=== PATIENT | male | born 1935 | race Caucasian/White ===

== ENCOUNTER → 2017-12-11 | Outpatient (CLI) | payer MEDICARE, BC ==
[~2017-12-11] MED LIST: ACETAMINOPHEN325 M1 PO; ALBUTEROL0.63 MG/3 INH; AMLODIPINE BESYL5 MG PO; ARICEPT5 MG PO; ASPIR-LOW81 MG PO; CYMBALTA20 MG PO; EFFIENT10 MG PO; HUMALOG100 UNIT/1 SC; HUMALOG100 UNIT/1 SQ; HYDRALAZINE HCL25 MG PO; IPRATROPIU0.2 MG/1 M NEB; LABETALOL HCL100 MG PO; LANSOPRAZOLE15 MG PO; LANTUS 3ML100 UNITS/ SC; LOSARTAN POTASS25 MG PO; METOPROLOL SUCC50 MG PO; MONTELUKAST SOD10 MG PO; MUCUS RELIEF400 MG PO; NORCO 5-325 TA1 EACH PO; PANTOPRAZOLE SO40 MG PO; PRAVASTATIN SOD80 MG PO; PROAIR HFA INH8.5 GM INH; PROCARDIA XL30 MG PO; RIVASTIGMINE1.5 MG PO; SIMVASTATIN80 MG PO; SYMBICORT 16010.2 GM INH; TAMSULOSIN HCL0.4 MG PO; TRADJENTA5 MG PO; VIT B PO
--- NOTE | 2017-12-11 17:08 | Cardiology Report ---
DATE OF STUDY: December 11, 2017 NUCLEAR GATED MYOCARDIAL PERFUSION SCAN Nuclear gated myocardial perfusion scan performed as per protocol at nuclear medicine lab at [facility]. Lexiscan injected 0.4 mg intravenously as stress agent and Myoview injected 11 mCi for resting protocol and 33 mCi for stress protocol. The stress is supervised by Dr. Hamilton and stress EKG is interpreted by Dr. Hamilton. Nuclear interpretation: [id number], only done by Dr. Dr. Fanta Kline. IMPRESSION: 1. Left ventricular ejection fraction 65%. No evidence of ischemia or scar noted. 2. Normal gated myocardial perfusion scan. Thank you, Dr. Hamilton for this nuclear interpretation, consultation. Job#: [id number]
== END ==
LOC: NM 10:47
PROVIDERS: ATTEND Internal Medicine Cardiovascular Disease
DX: I25.110 Atherosclerotic heart disease of native coronary artery with unstable angina pectoris (principal); R94.31 Abnormal electrocardiogram [ECG] [EKG]
CPT/HCPCS: 78452; 93017; A9502

== ENCOUNTER 2018-02-13 13:20 | Inpatient (IN) | payer MEDICARE, BC ==
[~2018-02-13] VITALS: Ht 175.3 cm; Wt 49.5 kg
[~2018-02-13 13:20] MED LIST changes: -AMLODIPINE BESYL5 MG PO; -CYMBALTA20 MG PO; -HYDRALAZINE HCL25 MG PO; -LABETALOL HCL100 MG PO; -PANTOPRAZOLE SO40 MG PO; -PRAVASTATIN SOD80 MG PO; -RIVASTIGMINE1.5 MG PO; -TRADJENTA5 MG PO
--- OUTSIDE RECORDS SUMMARY | 2018-02-13 13:24 | XMS REPORT ---
[facility] Address Unknown Phone Unavailable Care Team Providers Care V Belt Finisher Name Role Phone PALOMO HAMILTON Unavailable Unavailable AMBER GREEN Unavailable Unavailable CANDI PINZON Unavailable Unavailable Problems This patient has no known problems. Allergies, Adverse Reactions, Alerts This patient has no known allergies or adverse reactions. Medications This patient has no known medications. Results Test Description Test Time Test Comments Text Results Atomic Results Result Comments Stress Test - Treadmill ONLY [place] [address] Patient Name : CURLY DEL VALLE MR #: [id number] : 1935 Age/Sex: 82/M Adm Physician : PALOMO HAMILTON MD Admit Date : Location : PR Room/Bed : REPORT: Cardiology Report DATE OF STUDY: December 11, 2017 NUCLEAR GATED MYOCARDIAL PERFUSION SCAN Nuclear gated myocardial perfusion scan performed as per protocol at nuclear medicine lab at [facility]. Lexiscan injected 0.4 mg intravenously as stress agent and Myoview injected 11 mCi for resting protocol and 33 mCi for stress protocol. The stress is supervised by Dr. Hamilton and stress EKG is interpreted by Dr. Hamilton. Nuclear interpretation: [id number], only done by Dr. Dr. Fanta Kline. IMPRESSION: 1. Left ventricular ejection fraction 65%. No evidence of ischemia or scar noted. 2. Normal gated myocardial perfusion scan. Thank you, Dr. Hamilton for this nuclear interpretation, consultation. DT: 12/11 16:50 Job#: [id number] Signature Date Dictated By : IRAM KLINE MD Transcribed By: ROSARIO on 12/11/17 <Electronically signed by IRAM KLINE MD><<Signature on File>>12/30/17 1608 COPY TO: CHEST SINGLE (PORTABLE) [place] [address] Patient Name: CURLY DEL VALLE MR #: [id number] : 1935 Age/Sex: 82/M Req #: [id number] Adm Physician: Ordered by: CANDI PINZON MD Report #: [id number] Location: ER Room/Bed: Procedure: [id number] DX/CHEST SINGLE (PORTABLE) Exam Date: 07/14/17 Exam Time: 0740 REPORT STATUS: Signed PROCEDURE: CHEST SINGLE (PORTABLE) COMPARISON: 06/25/2017. INDICATIONS: VOMITING FINDINGS: The lungs are hyperinflated. Calcified right upper lobe granuloma and right hilar lymph nodes. No consolidation, pleural effusion, or pneumothorax. Tortuosity of the thoracic aorta with an otherwise normal cardiomediastinal contour. No free air under the diaphragm. Left subclavian approach implantable cardiac device body and leads are unchanged in position. No acute osseous abnormality. Degenerative changes of the left glenohumeral joint. CONCLUSION: No acute cardiopulmonary abnormality. Pulmonary hyperinflation compatible with COPD. Evidence of prior granulomatous disease. Dictated by: Heather Leong M.D. on at 8:03 Electronically approved by: Heather Leong M.D. on 2016 at 8:03 Dictated By: HEATHER LEONG MD 2 Transcribed By: ANTHONY on 07/14/17802 COPY TO: CANDI PINZON MD US RENAL RETROPERITONEAL COMP [place] [address] Patient Name: CURLY DEL VALLE MR #: [id number] : 1935 Age/Sex: 82/M Req #: [id number] Adm Physician: AMBER GREEN MD Ordered by: DIANA ARZATE, BETTIE ARZATE Report #: [id number] Location: MED/SURG Room/Bed: [facility] Procedure: [id number] US/US RENAL RETROPERITONEAL COMP Exam Date: 07/14/17 Exam Time: 1615 REPORT STATUS: Signed PROCEDURE: US RETROPERITONEAL ( KIDNEY ). COMPARISON: CT abdomen and pelvis 06/25/2017. INDICATIONS: DEHYDRATION TECHNIQUE: Garcia- scale and color sonographic images of the bilateral kidneys and bladder where obtained in transverse and longitudinal planes. FINDINGS: RIGHT KIDNEY: 6.7 x 2.1 x 2.6 cm, cortex 0.3 cm Cysts: None Solid masses : None Stones: None Hydronephrosis: None Echogenicity: Increased LEFT KIDNEY: 7.7 x 4.4 x 4.6 cm, cortex 0.9 cm Cysts: None Solid masses: None Stones: None Hydronephrosis: None Echogenicity: Increase Bladder: 208 mL Bilateral ureteral jets are not visualized. Prostate : 4.9 x 2.5 x 3.1 cm. CONCLUSION: 1. Echogenic kidneys consistent medical renal disease. 2. Atrophic right kidney. 3. Previous possible cyst in the interpolar region of the right kidney is not well-visualized. Dictated by: Ry Gary M.D. on 07/14/2017 at 17:24 Electronically approved by: Ry Gary M.D. on 07/14/2017 at 17:24 Dictated By: RY GARY MD 23 Transcribed By: ANTHONY on 07/14/171723 COPY TO: BETTIE ORTIZ CT ABDOMEN/PELVIS WO [place] [address] Patient Name: CURLY DEL VALLE MR #: [id number] : 1935 Age/Sex: 82/M Req #: [id number] Adm Physician: Ordered by: LAZARO GRAY MD Report #: [id number] Location: ER Room/Bed: Procedure: [id number] CT/CT ABDOMEN/PELVIS WO Exam Date: Exam Time: REPORT STATUS: Signed CT Abdomen and Pelvis without contrast INDICATION: Abdominal pain TECHNIQUE: Thin collimation axial images obtained from the diaphragm to the level of the pubic symphysis without nonionic intravenous contrast. RADIATION DOSE: Total DLP: 145.25 mGy*cm Estimated effective dose: (DLP x 0.015 x size factor) mSv CTDIvol has been reviewed. It is below the limits set by the Radiation Protocol Committee (RPC). COMPARISON: None. ABDOMEN FINDINGS: Lung Bases: Diffusely hyperinflated with spiculated nodule or scar in the right middle lobe measuring 1.1 x 0.8 cm. A right fat-containing Bochdalek hernia is present. There are heavy calcific age is the mitral valve. Dual lead pacemaker wire terminates in the right atrium and right ventricle.. The visualized portion of the mediastinum is normal. Liver: Normal in attenuation without mass. Gallbladder: Present and appears normal. No ductal dilatation. Pancreas: Normal attenuation without mass. Spleen: Normal in size with calcified granulomata. Adrenal Glands: No evidence for mass. Kidneys: Right: Atrophic without hydronephrosis. Low attenuating lesion in the lateral interpolar cortex measures 7 mm and is too small to characterize further. Left: No renal calculus. No cortical mass or hydronephrosis Lymph Nodes: No lymphadenopathy. Aorta: [place] aorta is heavily calcified. Aortic graft is present. There are stents in the common iliac arteries. No retroperitoneal hemorrhage or inflammation. No free fluid or fluid collection. PELVIS FINDINGS: Bowel: Small Bowel: Distended with air and enteric contrast with no mural thickening or mesenteric inflammation. Large Bowel: Diverticulosis coli, particularly in the sigmoid colon without associated inflammation. No mural thickening. There is gaseous distention of the cecum and right colon without significant dilatation. Appendix: Best seen on coronal reformations and is normal. Bladder: Under distended. There is mild diffuse bladder wall thickening. The prostate gland is enlarged.. Ureters: No ureteral dilatation. No free fluid or fluid collection. Bones: Multilevel degenerative disc disease superimposed on scoliosis. No compression deformities. No lytic or blastic lesions. IMPRESSION: 1. Gaseous distention of the small bowel and large bowel without evidence of obstruction. Diverticulosis coli. No evidence of diverticulitis. 2. Aortic graft within normal limits. 3. Atrophic right kidney with subcentimeter cortical lesion, too small to characterize. Recommend further characterization with ultrasound on an outpatient basis. 4. Spiculated nodule or scar in the base of the right lung. Recommend further evaluation with CT of the chest to establish baseline for periodic surveillance to confirm stability. Signed by: Dr. Gabriella Martin MD on 06/25/2017 8:16 AM Dictated By: GABRIELLA MARTIN MD 5 Transcribed By: JOSE on 08/01 COPY TO: LAZARO GRAY MD CHEST 2 VIEWS [place] [address] Patient Name: CURLY DEL VALLE MR #: [id number] : 1935 Age/Sex: 82/M Req # : [id number] [facility] Physician: Ordered by: LAZARO GRAY MD Report #: [id number] Location: ER Room/Bed: Procedure: [id number] DX/CHEST 2 VIEWS Exam Date: Exam Time: REPORT STATUS: Signed EXAMINATION: CHEST 2 VIEWS INDICATION: Indigestion COMPARISON: None FINDINGS: TUBES and LINES: The pacemaker is intact. LUNGS: Lungs are hyper inflated. Lungs are clear. There is no evidence of pneumonia or pulmonary edema. PLEURA: No pleural effusion or pneumothorax. HEART AND MEDIASTINUM: The cardiomediastinal silhouette is unremarkable. There are atherosclerotic calcifications within the aorta. BONES AND SOFT TISSUES: No acute osseous lesion. Soft tissues are unremarkable. UPPER ABDOMEN: No free air under the diaphragm. IMPRESSION: 1. No acute thoracic abnormality. 2. Hyperinflation of lungs in keeping with COPD. Signed by: Dr. Gavin Hager M.D. on 06/25/2017 6:04 AM Dictated By: GAVIN VEGA MD 3 Transcribed By: JOSE on 06/25/17603 COPY TO: LAZARO GRAY MD
[2018-02-13 14:29] LABS: BASOPHILS % 0.2 % (0.0-1.0); EOSINOPHILS % 0.4 % (0.0-6.0); HEMATOCRIT 31.3 % (38.2-49.6); LYMPHOCYTES # (AUTO) 0.6 (1.0-3.2); LYMPHOCYTES % 6.5 % (18.0-39.1); MEAN CORPUSCULAR HEMOGLOBIN 30.5 pg (28-32); MEAN CORPUSCULAR HGB CONC 31.9 g/dL (31-35); MEAN CORPUSCULAR VOLUME 95.4 fL (81-99); MONOCYTES # (AUTO) 0.3 (0.2-0.8); MONOCYTES % 3.4 % (4.4-11.3); NEUTROPHILS % 89.1 % (38.7-80.0); PLATELET COUNT 209 x10e3/uL (140-360); RED BLOOD COUNT 3.28 x10e6/uL (4.3-5.7); RED CELL DISTRIBUTION WIDTH 14.9 % (11.7-14.4)
[2018-02-13 14:45] LABS: ALBUMIN 3.7 g/dL (3.5-5.0); ALBUMIN/GLOBULIN RATIO 1.1 (0.8-2.0); ANION GAP 13.6 mmol/L (8-16); CALCIUM 10.3 mg/dL (8.4-10.2); CREATININE, SERUM 2.65 mg/dL (0.72-1.25); POTASSIUM 4.6 mmol/L (3.5-5.1)
[2018-02-13 15:05] LABS: THYROID STIMULATING HORMONE 0.789 uIU/mL (0.350-4.940)
--- NOTE | 2018-02-13 15:06 | Diagnostic Imaging Report ---
History:AMS, weakness Comparison studies:None Technique: Axial images were obtained from the skull base to the vertex. Coronal and sagittal images reconstructed from the axial data. Intravenous contrast: None Findings: Scalp/skull: No abnormalities. Extra-axial spaces: No masses. No fluid collections. Brain sulci: Mildly prominent. Ventricles: Mild compensatory dilatation. No hydrocephalus. Parenchyma: Scattered small hypodensities in the supratentorial white matter are small vessel ischemic changes. No masses, hemorrhage, acute or chronic cortical vascular insults. Sellar/suprasellar region: No abnormalities. Craniocervical junction: Patent foramen magnum. No Chiari one malformation. Incidental findings: Atherosclerotic calcifications in the carotid siphons . Bilateral cataract surgery changes. Impression: No acute abnormalities. Chronic findings: 1. Mild generalized volume loss. 2. Mild supratentorial white matter small vessel ischemic changes. Signed by: DR Tyrell Wilhelm M.D. on 02/13/2018 3:03 PM
[2018-02-13 15:52] LABS: BILIRUBIN,URINE NEGATIVE (NEGATIVE); CLARITY,URINE SL CLOUDY (CLEAR); COLOR,URINE YELLOW (YELLOW); KETONES,URINE NEGATIVE (NEGATIVE); LEUKOCYTE ESTERASE ,URINE NEGATIVE (NEGATIVE); NITRITE,URINE NEGATIVE (NEGATIVE); PROTEIN,URINE DIPSTICK 2+ (NEGATIVE); URINE UROBILINOGEN 0.2 mg/dL (0.2 - 1)
[2018-02-13 16:09] LABS: HYPOCHROMASIA MODERATE; LYMPHOCYTES % (MANUAL) 7 % (19-48); MONOCYTES % (MANUAL) 3 % (3.4-9.0); NEUTROPHILS % (MANUAL) 90 % (40-74); PLATELET ESTIMATE ADEQUATE; PLATELET MORPHOLOGY COMMENT FEW LARGE; RBC MORPHOLOGY COMMENT NORMAL
[2018-02-13] MEDS ORDERED: DEXTROSE 50% SYRINGE 50 ML IV PRN (16:45)
[2018-02-13] MEDS ORDERED: ONDANSETRON HCL INJ 2 MG/ML VIAL IV PRN (16:45)
[2018-02-13] MEDS ORDERED: SODIUM CHLORIDE FLUSH 10 ML SYR INJ PRN (16:45)
[2018-02-13] MEDS ORDERED: LABETALOL HCL100 MG PO (17:13)
[2018-02-13] MEDS ORDERED: CYMBALTA20 MG PO (17:13)
[2018-02-13] MEDS ORDERED: TRADJENTA5 MG PO (17:13)
[2018-02-13] MEDS ORDERED: HYDRALAZINE HCL25 MG PO (17:13)
[2018-02-13] MEDS ORDERED: AMLODIPINE BESYL5 MG PO (17:13)
[2018-02-13] MEDS ORDERED: PRAVASTATIN SOD80 MG PO (17:13)
[2018-02-13] MEDS ORDERED: PANTOPRAZOLE SO40 MG PO (17:13)
[2018-02-13] MEDS ORDERED: RIVASTIGMINE1.5 MG PO (17:13)
[2018-02-13 18:31] VITALS: BP 179/83
[2018-02-13] MEDS: SODIUM CHLORIDE 0.9% 1000ML 1,000 ML IV SCH (19:00)
[2018-02-13 20:00] VITALS: BP 177/76
[2018-02-13 20:25] VITALS: BP 160/83
[2018-02-13] MEDS: INSULIN REGULAR, HUMAN 100 UNIT/1 ML 3ML VIAL SQ SCH (21:55)
[2018-02-14] VITALS (7 sets, daily range): BP systolic 163–195; BP diastolic 72–80
[2018-02-14] MEDS: SODIUM CHLORIDE 0.9% 1000ML 1,000 ML IV SCH (04:13)
[2018-02-14 07:06] LABS: BASOPHILS % 0.3 % (0.0-1.0); EOSINOPHILS # (AUTO) 0.2 (0.0-0.4); EOSINOPHILS % 2.2 % (0.0-6.0); HEMATOCRIT 28.6 % (38.2-49.6); HEMOGLOBIN 9.4 g/dL (14.0-18.0); LYMPHOCYTES # (AUTO) 0.9 (1.0-3.2); LYMPHOCYTES % 13.5 % (18.0-39.1); MEAN CORPUSCULAR HEMOGLOBIN 31.5 pg (28-32); MEAN CORPUSCULAR HGB CONC 32.9 g/dL (31-35); MONOCYTES # (AUTO) 0.6 (0.2-0.8); MONOCYTES % 8.4 % (4.4-11.3); NEUTROPHILS # (AUTO) 5.2 (2.1-6.9); NEUTROPHILS % 75.2 % (38.7-80.0); PLATELET COUNT 189 x10e3/uL (140-360); RED BLOOD COUNT 2.98 x10e6/uL (4.3-5.7); RED CELL DISTRIBUTION WIDTH 15.1 % (11.7-14.4)
[2018-02-14] MEDS: INSULIN REGULAR, HUMAN 100 UNIT/1 ML 3ML VIAL SQ SCH ×4 (07:30→21:00)
[2018-02-14 07:31] LABS: ALBUMIN 3.1 g/dL (3.5-5.0); ALBUMIN/GLOBULIN RATIO 1.1 (0.8-2.0); ANION GAP 11.4 mmol/L (8-16); CALCIUM 9.7 mg/dL (8.4-10.2); CHOL/HDL RATIO 2.5 (3.9-4.7); CREATININE, SERUM 2.45 mg/dL (0.72-1.25); MAGNESIUM 1.9 MG/DL (1.3-2.1); PHOSPHORUS 3.7 MG/DL (2.3-4.7); POTASSIUM 4.4 mmol/L (3.5-5.1)
[2018-02-14] MEDS ORDERED: ASPIRIN 325 MG TAB EC PO SCH (09:00)
[2018-02-14] MEDS ORDERED: GUAIFENESIN PO PRN (10:00)
[2018-02-14] MEDS ORDERED: HYDROCODONE/APAP 5MG-325MG TAB PO PRN (10:00)
[2018-02-14] MEDS ORDERED: ACETAMINOPHEN 325 MG TAB PO PRN (10:00)
[2018-02-14] MEDS ORDERED: AMLODIPINE BESYLATE 5 MG TAB PO SCH (10:15)
[2018-02-14] MEDS: PRASUGREL 10 MG TAB PO SCH (10:15)
[2018-02-14] MEDS: LABETALOL HCL 100 MG TAB PO SCH ×3 (11:00→22:24)
[2018-02-14] MEDS: ALBUTEROL SULF 0.083% NEB SOLN 3 ML NEB INH PRN (11:35)
[2018-02-14] MEDS ORDERED: ONDANSETRON HCL 4 MG ORAL DISINTEGRATING TAB PO PRN (11:45)
[2018-02-14] MEDS: HYDRALAZINE HCL 25 MG TAB PO SCH ×2 (15:10→22:24)
[2018-02-14] MEDS ORDERED: PROCARDIA XL30 MG PO (16:34)
[2018-02-14] MEDS ORDERED: PANTOPRAZOLE SOD 40 MG TABEC PO SCH (17:00)
--- NOTE | 2018-02-14 17:11 | Consultation ---
DATE OF CONSULTATION: TIME OF CONSULTATION: 4 p.m. NEUROLOGICAL CONSULTATION A patient of Dr. Tex Snyder. REASON FOR CONSULTATION: TIA. HISTORY OF PRESENT ILLNESS: This is an 82-year-old male with a history of COPD, hypertension, diabetes mellitus, hyperlipidemia, chronic kidney disease. Last night he developed generalized weakness, not feeling good, feeling like some trouble with his speech and feeling like he was going to fall. He was brought to the emergency room. Apparently in the emergency room the blood pressure was high. I do not have the values. He was put in the hospital with a diagnosis of TIA. Also he was complaining of blurred vision. He also has some history of short-term memory, possible mild dementia. LIST OF MEDICATION: Has been reviewed in detail. REVIEW OF SYSTEMS: All 12 steps negative except what is described above. ALLERGIES: NONE KNOWN. SOCIAL HISTORY: He does not smoke or drink. He lives with his . PAST SURGICAL HISTORY: He had a coronary artery bypass in 1999. PHYSICAL EXAMINATION GENERAL: He denies any headache at the time. He denies any visual disturbance. No diplopia, no speech, no swallowing difficulty. He denies any paresthesia of the arms or legs. VITAL SIGNS: Blood pressure 179/119. He has been having trouble controlling the blood pressure. Pulse 78. Afebrile. LUNGS: Clear to auscultation and percussion. HEART: Regular sinus rhythm. No murmur. ABDOMEN: Soft. No tenderness. No organomegaly. MUSCULOSKELETAL: Lower extremities: No edema, no cyanosis, no clubbing. NEUROLOGIC Mental status: Awake, alert, follows commands well. Speech clear. No evidence of dysarthria or dysphagia. Cranial nerves: Pupils were both equal and reactive. External ocular movements were full. Visual field on confrontation was grossly normal. Funduscopic examination benign. No facial weakness. Facial sensation normal. Tongue protrudes midline. Motor power: Moving all 4 extremities symmetrically. Proximal and distal muscles 5/5. Lower extremities, able to elevate his legs against gravity approximately 70 degrees without any difficulty. Flexion of the hips 5/5. Flexion and extension of both knees 5/5. Dorsiflexion of the ankles 5/5, plantarflexion 5/5. Dorsal extension 5/5 bilaterally. Coordination: [id number]-zc-[id number] is normal. Deep tendon reflexes: Triceps, biceps, radials 1+. Knee jerks 1+. Ankle jerks were absent bilaterally. Plantar stimulation is down bilaterally. HEAD: Normocephalic. NECK: Supple. Carotid pulsations were present bilaterally. There was a systolic bruit in the left side. LABORATORY WORKUP: CBC shows a white count 6900 with a hemoglobin 9.4, hematocrit 28.6, platelets 189,000. Chemistry: Sodium and potassium were within the normal range. BUN 27, elevated. Creatinine 2.45, elevated. Estimated GFR 25, which is quite low. Glucose 127. Liver enzymes are normal. Urinalysis negative. A CT scan of the brain shows no acute pathology. Echocardiogram has been done. Carotid Doppler is pending. ASSESSMENT 1. An 82-year-old male with sudden generalized weakness, feeling weak, not feeling well, slurred speech, possibility of transient ischemic attack, the reason for which he came into the hospital. Most likely we are dealing with a brief TIA. 2. History of hypertension. 3. Diabetes mellitus type 2. 4. Chronic obstructive pulmonary disease. At the present time, the neurological workup has been negative for any focal deficit, no evidence of acute stroke. We will review the Doppler study of the carotid system and will consult Physical Therapy for ambulation. If the Doppler is normal, the ambulation is normal, then he could be sent home. Job#: [id number] EV
[2018-02-14] MEDS: INSULIN DETEMIR 100 UNIT/ML PEN SQ SCH (21:00)
[2018-02-14] MEDS: NIFEDIPINE CR 30 MG TAB PO SCH (22:23)
[2018-02-14] MEDS: RIVASTIGMINE TARTRATE 1.5 MG CAP PO SCH (22:23)
[2018-02-14] MEDS: PANTOPRAZOLE SOD 40 MG TABEC PO SCH (22:23)
[2018-02-14] MEDS: SIMVASTATIN 40 MG TAB PO SCH (22:24)
[2018-02-15] VITALS (7 sets, daily range): BP systolic 132–173; BP diastolic 61–77
[2018-02-15] MEDS: ALBUTEROL SULFATE HFA 8GM INHALATION AEROSOL INH PRN ×2 (00:09→06:32)
[2018-02-15] MEDS: BUDESONIDE/FORMOTEROL 160/4.5MCG INHALER INH PRN ×2 (00:09→06:30)
[2018-02-15] MEDS: INSULIN REGULAR, HUMAN 100 UNIT/1 ML 3ML VIAL SQ SCH ×4 (07:30→21:00)
[2018-02-15] MEDS: NIFEDIPINE CR 30 MG TAB PO SCH ×2 (08:47→23:04)
[2018-02-15] MEDS: MONTELUKAST SODIUM 10 MG TAB PO SCH (08:47)
[2018-02-15] MEDS: TAMSULOSIN HCL 0.4 MG CAP PO SCH (08:47)
[2018-02-15] MEDS: PRASUGREL 10 MG TAB PO SCH (08:47)
[2018-02-15] MEDS: FOLIC ACID/CYANOCOB/PYRIDOXINE TAB PO SCH (08:47)
[2018-02-15] MEDS: LINAGLIPTIN 5 MG PO SCH (08:47)
[2018-02-15] MEDS: DULOXETINE HCL 20 MG DELAYED RELEASE PO SCH (08:47)
[2018-02-15] MEDS: RIVASTIGMINE TARTRATE 1.5 MG CAP PO SCH ×2 (08:47→23:03)
[2018-02-15] MEDS: HYDRALAZINE HCL 25 MG TAB PO SCH ×3 (08:47→23:04)
[2018-02-15] MEDS: PANTOPRAZOLE SOD 40 MG TABEC PO SCH ×2 (08:47→23:03)
[2018-02-15] MEDS: LABETALOL HCL 100 MG TAB PO SCH ×3 (08:48→23:04)
[2018-02-15] MEDS ORDERED: VIT B PO SCH (09:00)
[2018-02-15] MEDS: DEXTROSE 5%/0.225% SOD CHL 1,000 ML IV SCH (10:49)
[2018-02-15] MEDS: INSULIN DETEMIR 100 UNIT/ML PEN SQ SCH (21:00)
[2018-02-15] MEDS: SIMVASTATIN 40 MG TAB PO SCH (23:03)
[2018-02-16] VITALS (16 sets, daily range): BP systolic 132–184; BP diastolic 64–81
[2018-02-16] MEDS: DEXTROSE 5%/0.225% SOD CHL 1,000 ML IV SCH (02:10)
[2018-02-16] MEDS: ALBUTEROL SULFATE HFA 8GM INHALATION AEROSOL INH PRN (03:55)
[2018-02-16] MEDS: ALBUTEROL SULF 0.083% NEB SOLN 3 ML NEB INH PRN ×2 (04:05→22:45)
[2018-02-16 06:18] LABS: BASOPHILS % 0.2 % (0.0-1.0); EOSINOPHILS # (AUTO) 0.1 (0.0-0.4); HEMATOCRIT 31.1 % (38.2-49.6); LYMPHOCYTES # (AUTO) 0.8 (1.0-3.2); LYMPHOCYTES % 7.4 % (18.0-39.1); MEAN CORPUSCULAR HEMOGLOBIN 30.5 pg (28-32); MEAN CORPUSCULAR HGB CONC 32.2 g/dL (31-35); MEAN CORPUSCULAR VOLUME 94.8 fL (81-99); MONOCYTES # (AUTO) 0.6 (0.2-0.8); MONOCYTES % 6.2 % (4.4-11.3); NEUTROPHILS # (AUTO) 8.8 (2.1-6.9); NEUTROPHILS % 84.5 % (38.7-80.0); PLATELET COUNT 203 x10e3/uL (140-360); RED BLOOD COUNT 3.28 x10e6/uL (4.3-5.7); RED CELL DISTRIBUTION WIDTH 14.8 % (11.7-14.4)
[2018-02-16 06:34] LABS: ANION GAP 12.1 mmol/L (8-16); CALCIUM 9.9 mg/dL (8.4-10.2); CREATININE, SERUM 2.31 mg/dL (0.72-1.25); POTASSIUM 4.1 mmol/L (3.5-5.1)
[2018-02-16] MEDS: BUDESONIDE/FORMOTEROL 160/4.5MCG INHALER INH PRN (07:02)
[2018-02-16] MEDS ORDERED: FENTANYL CITRATE/PF 100MCG/2 ML INJ ONE (07:13)
[2018-02-16] MEDS ORDERED: LIDOCAINE HCL 2% LOCAL 20 ML VIAL ONE (07:13)
[2018-02-16] MEDS ORDERED: MIDAZOLAM HCL 2 MG/2 ML VIAL ONE (07:13)
[2018-02-16] MEDS ORDERED: HEPARIN SOD/SOD CHLORIDE 2,000 ML ONE (07:14)
[2018-02-16] MEDS ORDERED: IOPAMIDOL 370 MG/ML 200 ML INFUS..BTL INJ ONE (07:16)
[2018-02-16] MEDS ORDERED: SODIUM CHLORIDE 0.9% 1000ML 1,000 ML ONE (07:16)
[2018-02-16] MEDS: INSULIN REGULAR, HUMAN 100 UNIT/1 ML 3ML VIAL SQ SCH ×4 (07:30→21:00)
[2018-02-16] MEDS: FOLIC ACID/CYANOCOB/PYRIDOXINE TAB PO SCH (10:56)
[2018-02-16] MEDS: HYDRALAZINE HCL 25 MG TAB PO SCH ×3 (10:56→21:30)
[2018-02-16] MEDS: RIVASTIGMINE TARTRATE 1.5 MG CAP PO SCH ×2 (10:56→21:00)
[2018-02-16] MEDS: LINAGLIPTIN 5 MG PO SCH (10:56)
[2018-02-16] MEDS: TAMSULOSIN HCL 0.4 MG CAP PO SCH (10:56)
[2018-02-16] MEDS: DULOXETINE HCL 20 MG DELAYED RELEASE PO SCH (10:56)
[2018-02-16] MEDS: PRASUGREL 10 MG TAB PO SCH (10:56)
[2018-02-16] MEDS: MONTELUKAST SODIUM 10 MG TAB PO SCH (10:57)
[2018-02-16] MEDS: NIFEDIPINE CR 30 MG TAB PO SCH ×2 (10:57→21:49)
[2018-02-16] MEDS: LABETALOL HCL 100 MG TAB PO SCH ×3 (10:57→21:50)
[2018-02-16] MEDS: PANTOPRAZOLE SOD 40 MG TABEC PO SCH ×2 (10:57→21:00)
[2018-02-16] MEDS: SODIUM CHLORIDE 0.9% 1000ML 1,000 ML IV SCH ×2 (11:42→21:51)
--- NOTE | 2018-02-16 13:03 | Consultation ---
DATE OF CONSULTATION: February 16, 2018 REASON FOR CONSULTATION: Abnormal kidney function. Patient is an existing patient with chronic kidney disease. He is currently lying supine, awake, alert, in no apparent distress, status post angiogram. by bedside. Most recent labs show hemoglobin is 10 with potassium 4.1, bicarbonate 23, creatinine 2.3. Recent urinalysis shows specific gravity 1.020 with dipstick negative blood. Urine microscopy is benign but dipstick-positive protein and glucose. Recent workup included CT of the brain without contrast. It shows mild supratentorial white matter small vessel ischemic changes. ALLERGIES: PLAVIX. CURRENT MEDICATIONS: Include: 1. D5 in 0.25% NS at 60 mL an hour. 2. He is on Tylenol p.r.n. 3. Albuterol. 4. Cymbalta 20 mg p.o. daily. 5. Guaifenesin p.r.n. 6. Insulin. 7. Labetalol 100 mg p.o. t.i.d. 8. Nifedipine 30 mg p.o. q.12. 9. Simvastatin 40 mg at bedtime. 10. Effient 10 mg p.o. daily. 11. Pantoprazole. 12. Flomax 0.4 mg daily. SOCIAL HISTORY: Does not smoke or drink. . PAST MEDICAL HISTORY: Type-2 diabetes, hypertension, congestive heart failure, chronic kidney disease, benign prostatic hypertrophy, hyperlipidemia. PHYSICAL EXAMINATION GENERAL: Awake, alert, lying supine, no apparent distress. VITALS: Blood pressure of 130/60. Pulse rate 80. HEAD AND NECK: Corneas clear. Oral mucosa moist. LUNGS: Relatively clear. No rales. HEART: S1 and S2 audible. Soft 1/6 to 2/6 ejection systolic murmur heard over left sternal border. LOWER EXTREMITIES: No edema. IMPRESSION AND PLAN: Chronic kidney disease with acute kidney injury component. Prior history of chronic obstructive pulmonary disease and multiple comorbids. Status post angiogram. Relatively nonoliguric. Hemoglobin is stable. Dipstick-positive protein. Plan on discontinuing existing IV fluids. Will recommend to avoid NSAIDs, ROSEMARY and ARBs at this point in time. Will start normal saline at 100 mL an hour at this point in time. Will obtain spot urine [id number] ratio. Monitor patient's kidney function and urine output with you. Recommend strict intake and output. Discussed with RN. Please see orders. Job#: [id number] ROCIO
[2018-02-16] MEDS ORDERED: ACETAMINOPHEN 325 MG TAB PO PRN (14:00)
--- NOTE | 2018-02-16 16:27 | Consultation ---
DATE OF CONSULTATION: February 15, 2018 CARDIOLOGY CONSULTATION REQUESTING PHYSICIAN: Dr. Tex Snyder. HISTORY OF PRESENT ILLNESS: This is an 82-year-old patient that was kindly referred by Dr. Snyder because of abnormal carotid ultrasound showing significantly elevated velocities on the left carotid bifurcation and the internal carotid artery consistent with moderately severe to severe carotid stenosis. The patient was admitted after he started feeling weak and not feeling well. Also, patient showed some unusual behavior according to the along with increased forgetfulness, and when he started having some slurred speech, he was brought to the emergency room and admitted to the hospital with the diagnosis of a transient ischemic attack. The patient has been seen in consultation by Dr. Artis, neurologist, and he is also followed by Dr. Sandoval for his chronic renal insufficiency. The patient's history reveals that he has coronary atherosclerotic heart disease with a previous stent in the right coronary artery, hypertensive cardiovascular disease with recent exacerbation. He also has chronic kidney disease stage 4, insulin-dependent diabetes mellitus, benign prostatic hypertrophy, COPD, peripheral arterial disease with total occlusion of the left superficial femoral artery. He has a history of a heart block and being pacemaker-dependent and had a redo on his pacemaker in March of 2017. He also has some history of paroxysmal atrial fibrillation, premature ventricular contraction. He also has chronic anemia most likely secondary to the patient's renal disease. He also has Alzheimer's disease and dementia. Surgical history reveals that he has a history of appendectomy, repair of a left rotator cuff, right carpal tunnel surgery, a corneal transplant. He also had previous bilateral iliac and renal aorto-bypass procedure in 1999 after failing of renal and iliac stents. ALLERGIES: PLAVIX, PLETAL. PATIENT ALSO DEVELOPED DIARRHEA WITH IRON SUPPLEMENTATION. SOCIAL HISTORY: Negative. FAMILY HISTORY: Noncontributory. REVIEW OF SYSTEMS: The remainder of systems has been reviewed, revealed the patient denies any sore throat. He has some chronic cough which is nonproductive. He also is complaining of intermittent frontal headaches. Patient denies any abdominal pain, nausea, vomiting, diarrhea. He has some constipation and weight loss and has been extensively evaluated. Patient denies any leg swelling. PHYSICAL EXAMINATION VITAL SIGNS: Reveal a temperature of 97.2, blood pressure 150/80. NECK: Carotid pulses are present. CHEST: Reveals decreased breath sounds. There are no wheezes and no rales, no rhonchi. CARDIOVASCULAR SYSTEM: Reveals a normal apical impulse. The rhythm is regular. First and second are normal. There is no S3. There is no rub. The thorax shows the pacemaker generator in place in the left infraclavicular area. ABDOMEN: Soft. There is scar from previous surgeries. Bowel sounds are present. There is no tenderness. EXTREMITIES: Pulses are diminished. There is no peripheral edema. NEUROLOGIC: Does not reveal any motor defect. IMPRESSION 1. Transient ischemic attack with significant left carotid stenosis per carotid ultrasound. 2. Coronary disease status post coronary stenting. 3. Chronic kidney disease. 4. Insulin-dependent diabetes mellitus. 5. Chronic obstructive pulmonary disease. 6. Peripheral arterial disease. 7. Alzheimer's disease and dementia. 8. Benign prostatic hypertrophy. 9. Anemia. I have reviewed the patient's ultrasound studies and discussed the findings at length with the patient and the patient's and recommend a selective coronary and a left carotid angiogram, which is preferable to the CTA study since most likely we can use less contrast to preserve his renal function which is already significantly abnormal. The patient and the patient's agree completely to proceed, and with their permission I will schedule the procedure for the 16 of February. In the meantime, would recommend to start hydration of the patient. Thank you very much for letting me see this very nice patient. Job#: [id number] MAGALIS
--- NOTE | 2018-02-16 16:51 | Operative Report ---
DATE OF PROCEDURE: February 16, 2018 DIAGNOSIS: 1. 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 2. Coronary disease with stenting of the right coronary artery and angina pectoris. 3. Permanent pacemaker with paroxysmal atrial fibrillation and premature ventricular contractions, pacemaker-dependent. PROCEDURES: 1. Aortic arch study and selective left carotid angiography. 2. Selective coronary angiography. DESCRIPTION OF PROCEDURE: After the usual prepping and draping, the left inguinal area was infiltrated with local lidocaine. The left femoral artery was then punctured percutaneously. The initial regular J loop guidewire was unable to be manipulated into the abdominal aorta, and the 0.035 Wholey guidewire was then utilized to access the infrarenal abdominal aorta through the aortoiliac bypass. Initially a 6-Danish pigtail catheter was utilized and positioned at the level of the aortic arch for aortic arch angiogram in the 40 degree SINHALA projection. This was then followed by a selective coronary angiography using modified Che catheters. The left ventricle was not entered, and no left ventricular angiogram was done because of the patient's chronic kidney disease and the patient was found to have normal left ventricular function on the echocardiogram showing an ejection fraction of 68% with diastolic dysfunction. After a review of the aortic arch study, it was noticed that the left common carotid artery was originating from the right innominate artery. To cannulate the left common carotid, a Hook number 1 diagnostic catheter was then utilized and successfully deployed in the left common carotid artery. Selective angiography of the left carotid extracranial and intracranial vessels was then performed in the AP, lateral and SINHALA projection. There was no blood loss, and there was no complication. The total contrast volume was 76 mL. At the end of the procedure and the removal of the arterial sheath, manual pressure was applied until hemostasis was achieved. Dressing was then applied, and the patient returned to his room in stable condition. There were no complications. The procedure was well tolerated. FINDINGS OF THE PROCEDURE: The aortic arch study showed some plaque in the thoracic aorta. The arch vessel showed also some minor plaques but no significant stenosis. The right vertebral artery was large and dominant. The left vertebral artery was not visualized and most likely was absent. The left common carotid showed some mild plaque formation in the mid common carotid artery. The proximal left internal carotid artery showed some mild plaque at the takeoff and about 40% to 50% stenosis in the proximal portion of the left internal carotid artery. The remainder of the vessel appeared to be without any obvious narrowing or stenosis, including the anterior cerebral and middle cerebral artery. The right common carotid artery appeared to be normal. There was some mild plaque in the proximal right internal carotid artery amounting to about 10% to 20% stenosis; and as visualized up to the base of the skull, there was no major obstruction. No selective injection on the right was performed since the aortic arch study showed very little blockage; and considering the patient's symptoms and chronic kidney disease, the study was limited by selective injection of the left carotid artery. The left coronary artery showed extensive calcification. There was some mild 20% stenosis at the distal left main coronary artery. The left anterior descending branch also showed some mild plaque formation and some small diagonal branches which did not show any severe disease. There was an intermediate branch, which had some scattered plaques in the proximal portion amounting to about 20% to 30% stenosis. The left obtuse marginal and circumflex artery showed some mild plaque formation without any significant stenosis. The right coronary artery showed a patent coronary stent. There was some mild plaque formation distal to the stent in the distal portion of the right coronary artery, which was a dominant vessel. IMPRESSION: 1. Mild to moderate stenosis of the left internal carotid artery. 2. Mild stenosis of the right internal carotid artery. 3. Absent left vertebral artery. 4. Mild calcific coronary disease involving the left coronary artery and the right coronary artery with a patent right coronary stent. RECOMMENDATION: I recommend to continue medical therapy as it was discussed with the patient, his and Dr. Tex Snyder. Job#: [id number] EV
[2018-02-16] MEDS: INSULIN DETEMIR 100 UNIT/ML PEN SQ SCH (21:30)
[2018-02-16] MEDS: SIMVASTATIN 40 MG TAB PO SCH (21:50)
[2018-02-17] VITALS (7 sets, daily range): BP systolic 121–194; BP diastolic 60–84
[2018-02-17] MEDS: GUAIFENESIN 200 MG/10 ML UDC PO PRN ×2 (00:49→15:55)
[2018-02-17 05:57] LABS: ALBUMIN 3.3 g/dL (3.5-5.0); ALBUMIN/GLOBULIN RATIO 1.1 (0.8-2.0); ANION GAP 12.8 mmol/L (8-16); CALCIUM 9.5 mg/dL (8.4-10.2); CREATININE, SERUM 2.45 mg/dL (0.72-1.25); POTASSIUM 4.8 mmol/L (3.5-5.1)
[2018-02-17] MEDS: LINAGLIPTIN 5 MG PO SCH (09:00)
[2018-02-17] MEDS: DULOXETINE HCL 20 MG DELAYED RELEASE PO SCH (09:23)
[2018-02-17] MEDS: TAMSULOSIN HCL 0.4 MG CAP PO SCH (09:23)
[2018-02-17] MEDS: FOLIC ACID/CYANOCOB/PYRIDOXINE TAB PO SCH (09:23)
[2018-02-17] MEDS: NIFEDIPINE CR 30 MG TAB PO SCH (09:23)
[2018-02-17] MEDS: RIVASTIGMINE TARTRATE 1.5 MG CAP PO SCH ×2 (09:23→21:00)
[2018-02-17] MEDS: PRASUGREL 10 MG TAB PO SCH (09:23)
[2018-02-17] MEDS: HYDRALAZINE HCL 25 MG TAB PO SCH ×3 (09:23→20:45)
[2018-02-17] MEDS: MONTELUKAST SODIUM 10 MG TAB PO SCH (09:24)
[2018-02-17] MEDS: LABETALOL HCL 100 MG TAB PO SCH ×3 (09:24→21:30)
[2018-02-17] MEDS: PANTOPRAZOLE SOD 40 MG TABEC PO SCH ×2 (09:24→20:45)
[2018-02-17] MEDS: INSULIN REGULAR, HUMAN 100 UNIT/1 ML 3ML VIAL SQ SCH ×4 (09:37→20:45)
[2018-02-17] MEDS: SODIUM CHLORIDE 0.9% 1000ML 1,000 ML IV SCH (10:06)
[2018-02-17] MEDS: ALBUTEROL SULF 0.083% NEB SOLN 3 ML NEB INH PRN (11:35)
[2018-02-17] MEDS: IPRATROPIUM BROMIDE 0.02% 2.5 ML NEB NEB PRN (11:35)
[2018-02-17] MEDS ORDERED: FUROSEMIDE INJ 10 MG/ML 4 ML VIAL IV ONE (12:15)
--- NOTE | 2018-02-17 14:18 | Diagnostic Imaging Report ---
EXAMINATION: CHEST SINGLE (PORTABLE) INDICATION: \S\CHF and CAD \S\[id number] \S\1335 \S\Y COMPARISON: Chest radiograph 07/14/[address] abdomen pelvis 06/25/2017 FINDINGS: AP view TUBES and LINES: 2-lead pacemaker device overlying the left upper hemithorax with leads overlying the right right ventricle. LUNGS: Hyperinflated lungs. Spiculated nodule in the right middle lobe seen on prior CT abdomen and pelvis from 06/25/2017 is not seen on this exam. No lobar consolidations. PLEURA: No pleural effusion or pneumothorax. HEART AND MEDIASTINUM: The cardiac silhouette is within normal limits. Pulmonary arteries appear enlarged.. BONES AND SOFT TISSUES: No acute osseous lesion. Soft tissues are unremarkable. UPPER ABDOMEN: No free air under the diaphragm. IMPRESSION: Hyperinflated lungs. Enlarged pulmonary arteries suggestive of pulmonary hypertension. No lobar consolidations or pulmonary edema. Spiculated nodule seen on prior CT not seen on this exam. Consider CT chest without contrast for further evaluation. Signed by: Dr. Joanna Alvarez M.D. on 02/17/2018 2:14 PM
[2018-02-17] MEDS: NIFEDIPINE 10 MG CAP PO SCH (17:35)
[2018-02-17] MEDS: INSULIN DETEMIR 100 UNIT/ML PEN SQ SCH (21:00)
[2018-02-17] MEDS: SIMVASTATIN 40 MG TAB PO SCH (21:30)
[2018-02-18] VITALS (9 sets, daily range): BP systolic 101–182; BP diastolic 57–84
[2018-02-18] MEDS: BUDESONIDE/FORMOTEROL 160/4.5MCG INHALER INH PRN ×2 (01:48→19:20)
[2018-02-18] MEDS: IPRATROPIUM BROMIDE 0.02% 2.5 ML NEB NEB PRN ×2 (01:50→07:45)
[2018-02-18] MEDS: ALBUTEROL SULF 0.083% NEB SOLN 3 ML NEB INH PRN ×2 (01:50→07:45)
[2018-02-18 06:06] LABS: BASOPHILS % 0.2 % (0.0-1.0); EOSINOPHILS % 0.3 % (0.0-6.0); HEMATOCRIT 31.7 % (38.2-49.6); HEMOGLOBIN 10.1 g/dL (14.0-18.0); LYMPHOCYTES # (AUTO) 0.7 (1.0-3.2); LYMPHOCYTES % 5.9 % (18.0-39.1); MEAN CORPUSCULAR HEMOGLOBIN 30.2 pg (28-32); MEAN CORPUSCULAR HGB CONC 31.9 g/dL (31-35); MEAN CORPUSCULAR VOLUME 94.9 fL (81-99); MONOCYTES # (AUTO) 0.9 (0.2-0.8); MONOCYTES % 7.1 % (4.4-11.3); NEUTROPHILS # (AUTO) 10.8 (2.1-6.9); PLATELET COUNT 200 x10e3/uL (140-360); RED BLOOD COUNT 3.34 x10e6/uL (4.3-5.7); RED CELL DISTRIBUTION WIDTH 14.9 % (11.7-14.4)
[2018-02-18 06:35] LABS: CALCIUM 9.9 mg/dL (8.4-10.2); CREATININE, SERUM 2.73 mg/dL (0.72-1.25)
[2018-02-18] MEDS: INSULIN REGULAR, HUMAN 100 UNIT/1 ML 3ML VIAL SQ SCH ×4 (07:30→21:00)
[2018-02-18] MEDS: HYDRALAZINE HCL 25 MG TAB PO SCH ×3 (08:10→21:00)
[2018-02-18] MEDS: NIFEDIPINE 10 MG CAP PO SCH (08:11)
[2018-02-18] MEDS: RIVASTIGMINE TARTRATE 1.5 MG CAP PO SCH ×2 (08:11→21:20)
[2018-02-18] MEDS: FOLIC ACID/CYANOCOB/PYRIDOXINE TAB PO SCH (08:11)
[2018-02-18] MEDS: TAMSULOSIN HCL 0.4 MG CAP PO SCH (08:11)
[2018-02-18] MEDS: LINAGLIPTIN 5 MG PO SCH (08:11)
[2018-02-18] MEDS: DULOXETINE HCL 20 MG DELAYED RELEASE PO SCH (08:11)
[2018-02-18] MEDS: PRASUGREL 10 MG TAB PO SCH (08:11)
[2018-02-18] MEDS: PANTOPRAZOLE SOD 40 MG TABEC PO SCH ×2 (08:11→21:20)
[2018-02-18] MEDS: MONTELUKAST SODIUM 10 MG TAB PO SCH (08:11)
[2018-02-18] MEDS: LABETALOL HCL 100 MG TAB PO SCH ×3 (08:12→21:00)
[2018-02-18] MEDS ORDERED: ALBUTEROL/IPRATROPIUM 3 ML NEB NEB ONE (11:00)
[2018-02-18] MEDS: VERAPAMIL HCL 120 MG TABSR PO SCH (12:59)
[2018-02-18] MEDS: ALBUTEROL/IPRATROPIUM 3 ML NEB NEB SCH ×3 (14:13→23:45)
[2018-02-18] MEDS: SIMVASTATIN 40 MG TAB PO SCH (21:20)
[2018-02-18] MEDS: INSULIN DETEMIR 100 UNIT/ML PEN SQ SCH (21:32)
[2018-02-19] VITALS (7 sets, daily range): BP systolic 121–154; BP diastolic 58–95
[2018-02-19] MEDS: ALBUTEROL/IPRATROPIUM 3 ML NEB NEB SCH ×3 (06:28→19:35)
[2018-02-19 06:53] LABS: BASOPHILS % 0.1 % (0.0-1.0); EOSINOPHILS # (AUTO) 0.1 (0.0-0.4); EOSINOPHILS % 0.9 % (0.0-6.0); HEMATOCRIT 28.3 % (38.2-49.6); HEMOGLOBIN 9.2 g/dL (14.0-18.0); LYMPHOCYTES # (AUTO) 0.8 (1.0-3.2); LYMPHOCYTES % 7.7 % (18.0-39.1); MEAN CORPUSCULAR HEMOGLOBIN 30.6 pg (28-32); MEAN CORPUSCULAR HGB CONC 32.5 g/dL (31-35); MONOCYTES # (AUTO) 0.9 (0.2-0.8); MONOCYTES % 8.7 % (4.4-11.3); NEUTROPHILS # (AUTO) 8.8 (2.1-6.9); PLATELET COUNT 187 x10e3/uL (140-360); RED BLOOD COUNT 3.01 x10e6/uL (4.3-5.7); RED CELL DISTRIBUTION WIDTH 14.9 % (11.7-14.4)
[2018-02-19] MEDS: INSULIN REGULAR, HUMAN 100 UNIT/1 ML 3ML VIAL SQ SCH ×3 (07:30→16:30)
[2018-02-19 07:34] LABS: ANION GAP 12.9 mmol/L (8-16); CALCIUM 9.5 mg/dL (8.4-10.2); CREATININE, SERUM 2.83 mg/dL (0.72-1.25); POTASSIUM 3.9 mmol/L (3.5-5.1)
[2018-02-19] MEDS: LINAGLIPTIN 5 MG PO SCH (09:00)
[2018-02-19] MEDS: PRASUGREL 10 MG TAB PO SCH (09:45)
[2018-02-19] MEDS: MONTELUKAST SODIUM 10 MG TAB PO SCH (09:45)
[2018-02-19] MEDS: LABETALOL HCL 100 MG TAB PO SCH (09:45)
[2018-02-19] MEDS: FOLIC ACID/CYANOCOB/PYRIDOXINE TAB PO SCH (09:45)
[2018-02-19] MEDS: TAMSULOSIN HCL 0.4 MG CAP PO SCH (09:45)
[2018-02-19] MEDS: DULOXETINE HCL 20 MG DELAYED RELEASE PO SCH (09:45)
[2018-02-19] MEDS: PANTOPRAZOLE SOD 40 MG TABEC PO SCH (09:45)
[2018-02-19] MEDS: VERAPAMIL HCL 120 MG TABSR PO SCH (09:45)
[2018-02-19] MEDS: HYDRALAZINE HCL 25 MG TAB PO SCH ×2 (09:46→16:00)
[2018-02-19 10:24] LABS: CREATININE,URINE RANDOM 86.04 mg/dL (63-166); TOTAL PROTEIN, URINE 69.9 mg/dL (1-14)
[2018-02-19] MEDS: RIVASTIGMINE TARTRATE 1.5 MG CAP PO SCH (12:48)
[2018-02-19] MEDS ORDERED: VERAPAMIL HCL 120 MG TABSR PO SCH ×2 (13:15→21:00)
[2018-02-19] MEDS ORDERED: LABETALOL HCL 100 MG TAB PO SCH (13:15)
[2018-02-19] MEDS ORDERED: ALBUTEROL SULF 0.083% NEB SOLN 3 ML NEB INH SCH (18:00)
[2018-02-19] MEDS ORDERED: ALBUTEROL SULFATE HFA 8GM INHALATION AEROSOL INH PRN (18:00)
== END 2018-02-19 21:31 | DRG 68 ==
LOC: ER 13:20 → ERHOLD 16:48 → INTOOBSV 16:48 → MED/SURG 18:12 → OBSVTOIN 02-15 12:27
PROC: B4101ZZ Fluoroscopy of Abdominal Aorta using Low Osmolar Contrast (ICD-10-PCS; principal; 2018-02-16)
PROC: B3141ZZ Fluoroscopy of Left Common Carotid Artery using Low Osmolar Contrast (ICD-10-PCS; 2018-02-16)
PROC: B31R1ZZ Fluoroscopy of Intracranial Arteries using Low Osmolar Contrast (ICD-10-PCS; 2018-02-16)
PROC: B31B1ZZ Fluoroscopy of Left External Carotid Artery using Low Osmolar Contrast (ICD-10-PCS; 2018-02-16)
PROC: B2111ZZ Fluoroscopy of Multiple Coronary Arteries using Low Osmolar Contrast (ICD-10-PCS; 2018-02-16)
PROC: 4A023N7 Measurement of Cardiac Sampling and Pressure, Left Heart, Percutaneous Approach (ICD-10-PCS; 2018-02-16)
DX: I65.22 Occlusion and stenosis of left carotid artery (principal); N17.9 Acute kidney failure, unspecified; I13.0 Hypertensive heart and chronic kidney disease with heart failure and stage 1 through stage 4 chronic kidney disease, or unspecified chronic kidney disease; N18.4 Chronic kidney disease, stage 4 (severe); I25.119 Atherosclerotic heart disease of native coronary artery with unspecified angina pectoris; I48.0 Paroxysmal atrial fibrillation; Z79.01 Long term (current) use of anticoagulants; J44.9 Chronic obstructive pulmonary disease, unspecified; G30.9 Alzheimer's disease, unspecified; F02.80 Dementia in other diseases classified elsewhere, unspecified severity, without behavioral disturbance, psychotic disturbance, mood disturbance, and anxiety; N40.0 Benign prostatic hyperplasia without lower urinary tract symptoms; E11.51 Type 2 diabetes mellitus with diabetic peripheral angiopathy without gangrene; Z79.4 Long term (current) use of insulin; D63.1 Anemia in chronic kidney disease; Z95.0 Presence of cardiac pacemaker; E11.22 Type 2 diabetes mellitus with diabetic chronic kidney disease; I50.9 Heart failure, unspecified
CPT/HCPCS: 36140; 36200; 36222; 36415; 70450; 71045; 77002; 80048; 80053; 80061; 81001; 82570; 82948; 83036; 83735; 83880; 84100; 84156; 84443; 85025; 93005; 93306; 93458; 93880; 94640; 99284; G0378; J1940; J2001; J2250; J7030; Q9967